=== PATIENT | female | born 2000 ===

== ENCOUNTER 2022-12-02 05:51 | Emergency (ER) | payer BC ==
[2022-12-02 06:34] LABS: Absolute Lymphocytes (CBC) 3.2 K/uL (0.7-4.9); Hematocrit 39.8 % (36.0-45.0); Lymphocytes % 31.9 % (15.3-44.8); MCV 87.5 fL (80-100); MPV 7.7 fL (7.6-11.3); RBC Red Blood Cell Count 4.55 M/uL (3.86-4.86)
[2022-12-02] MEDS ORDERED: KETOROLAC 30 MG/ML INJ ONE (06:40)
[2022-12-02] MEDS ORDERED: MORPHINE 4 MG/ML SYR ONE (06:40)
[2022-12-02] MEDS ORDERED: NA CHLORIDE 0.9% 1,000 ML ONE (06:40)
[2022-12-02] MEDS ORDERED: ONDANSETRON 4 MG/2 ML VIAL ONE (06:40)
[2022-12-02 06:51] LABS: Albumin 3.8 g/dL (3.4-5.0); Bilirubin Total 0.4 mg/dL (0.2-1.0); Potassium 3.1 mEq/L (3.5-5.1); Protein, Total 7.6 g/dL (6.4-8.2)
[2022-12-02 07:03] LABS: Calcium Oxalate Crystals- Ur Few /HPF (None Seen); Specific Gravity 1.028 (1.005-1.030); Transitional Epithelial <5 /HPF (None Seen); Urine Bacteria <20 /HPF (<20); Urine Bilirubin NEGATIVE (Negative); Urine Blood 1+ (Negative); Urine Clarity Extremely Turbid (Clear); Urine Color Yellow (Yellow); Urine Glucose NEGATIVE (Negative); Urine Mucus 4+ /HPF (None Seen); Urine Protein TRACE (Negative); Urine RBC 21-50 /HPF (None Seen); Urine Urobilinogen Normal (Normal)
[2022-12-02 07:05] LABS: Specific Gravity 1.028 (1.005-1.030)
--- NOTE | 2022-12-02 07:38 | RAD REPORT ---
EXAM DESCRIPTION: CTAbdomen Pelvis W Contrast - 12/02/2022 7:28 am CLINICAL HISTORY: Abdominal pain. ABD PAIN COMPARISON: No comparisons TECHNIQUE: Biphasic CT imaging of the abdomen and pelvis was performed with 100 ml non-ionic IV cont rast. All CT scans are performed using dose optimization technique as appropriate and may include automated exposure control or mA/KV adjustment according to patient size. FINDINGS: The lung bases are clear. The liver, spleen, pancreas, adrenal glands and right kidney are within normal limits. 2 mm calculus is suspected in the urinary bladder along the right aspect. There is subtle right-sided hydronephrosi s hydroureter. No bowel obstruction, free air, free fluid or abscess. The appendix is normal. No evidence of signi ficant lymphadenopathy. No suspicious bony findings. IMPRESSION: The findings would favor a recently passed right-sided 2 mm urinary tract stone.
--- NOTE | 2022-12-02 08:09 | EDPHYS ---
Physician Documentation [facility] Name: Gautam Gloria Age: 22 yrs Sex: Female : 2000 Arrival Date: 12/02/2022 Time: 05:51 Bed 15 Private MD: ED Physician Molina Julio HPI: 12/02 05:58 This 22 yrs old Female presents to ER via Unassigned with complaints of sp4 Abdominal Pain. 06:25 22-year-old female with history of insulin resistance on Ozempic, presents with a cute sp4 onset right lower abdominal pain starting at 5 AM associated with vomiting. Pain has gradually increased since 5 AM. . 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 - Social history:: Smoking status: Patient denies any tobacco usage or history of. - Family history:: not pertinent. ROS: 06:25 Constitutional: Negative for fever, chills, and weight loss, Abdomen/GI: Negative for sp4 diarrhea, and constipation, positive for abdominal pain nausea and vomiting 06:25 All other systems are negative. Exam: 06:25 Constitutional: This is a well developed, well nourished patient who is awake, alert, sp4 and in no acute distress. Head/Face: Normocephalic, atraumatic. Eyes: Pupils equal round and reactive to light, extra-ocular motions intact. Lids and lashes normal. Conjunctiva and sclera are not injected. Cornea within normal limits. Periorbital areas with no swelling, redness, or edema. ENT: Nares patent. No nasal discharge, no septal abnormalities noted. Tympanic membranes are normal and external auditory canals are clear. Oropharynx with no redness, swelling, or masses, exudates, or evidence of obstruction, uvula midline. Mucous membranes moist. Neck: Trachea midline, no thyromegaly or masses palpated, and no cervical lymphadenopathy. Supple, full range of motion without nuchal rigidity, or vertebral point tenderness. Chest/axilla: Normal chest wall appearance and motion. Nontender with no deformity. No lesions are appreciated. Cardiovascular: Regular rate and rhythm with a normal S1 and S2. No gallops, murmurs, or rubs. Normal PMI, no JVD. No pulse deficits. Respiratory: Lungs have equal breath sounds bilaterally, clear to auscultation and percussion. No rales, rhonchi or wheezes noted. No increased work of breathing, no retractions or nasal flaring. Abdomen/GI: Soft, right lower quadrant abdominal tenderness with positive rebound, no rigidity, no distention, hypoactive bowel sound, signs of early peritonitis on exam Back: No spinal tenderness. No costovertebral tenderness. Skin: Warm, dry with normal turgor. Normal color with no rashes, no lesions, and no evidence of cellulitis. MS/ Extremity: Pulses equal, no cyanosis. Neurovascular intact. Full, normal range of motion. Neuro: Awake and alert, GCS 15, oriented to person, place, time, and situation. Cranial nerves II-XII grossly intact. Motor strength 5/5 in all extremities. Sensory grossly intact. Psych: Awake, alert, with orientation to person, place and time. Behavior, mood, and affect are within normal limits Vital Signs: 06:05 BP 138 / 97; Pulse 116; Resp 18 S; Temp 98.6(O); Pulse Ox 100% on R/A; Weight 81.65 kg as6 (R); Height 5 ft. 2 in. (R); Pain 7/10; 08:16 BP 122 / 86; Pulse 97; Pulse Ox 100% ; ap3 06:05 Body Mass Index 32.92 (81.65 kg, 157.48 cm) as6 06:05 Pain Scale: Adult as6 MDM: 06:18 Patient medically screened. sp4 06:28 Differential Diagnosis sepsis, Appendicitis, ovarian cyst with torsion, ruptured sp4 ovarian cyst,. Data reviewed: vital signs, nurses notes, lab test result(s), amylase and lipase, CBC, electrolytes, hepatic panel, urinalysis, UPT: negative. 07:17 Transition of care: After a detail discussion of the patient's case, care is sp4 transferred to Molina Julio MD. 08:07 Counseling: I had a detailed discussion with the patient and/or guardian regarding: the rn historical points, exam findings, and any diagnostic results supporting the discharge/admit diagnosis, lab results, radiology results, the need for outpatient follow up, to return to the emergency department if symptoms worsen or persist or if there are any questions or concerns that arise at home. Response to treatment: the patient's symptoms have markedly improved after treatment, and as a result, I will discharge patient. Special discussion: I discussed with the patient/guardian in detail that at this point there is no indication for admission to the hospital. It is understood, however, that if the symptoms persist or worsen the patient needs to return immediately for re-evaluation. ED course: Signed out to me by Dr. Martinez, has recently passed a 2 mm stone, pain controlled, feels much better, no indications for acute surgical procedure. Will dc home with return precautions. TOld patient could potentially be related to ozempic initiation a few months ago, recommend talking to her doctor to change meds. . 12/02 06:18 Order name: Test, Urine; Complete Time: 07:14 sp4 12/02 06:18 Order name: Urinalysis W/Microscopic; Complete Time: 07:14 sp4 12/02 06:23 Order name: CBC with Diff; Complete Time: 07:14 jb4 12/02 06:23 Order name: CMP; Complete Time: 07:14 jb4 12/02 06:23 Order name: Lipase; Complete Time: 07:14 jb4 12/02 06:25 Order name: CT Abd/Pelvis - IV Contrast Only; Complete Time: 07:39 sp4 12/02 06:23 Order name: IV Saline Lock; Complete Time: 06:23 jb4 12/02 06:23 Order name: Labs collected and sent; Complete Time: 06:23 jb4 Administered Medications: 06:43 Drug: NS 0.9% IV 1000 ml Route: IV; Rate: 1 bolus; Site: right antecubital; jb4 08:15 Follow up: IV Status: Completed infusion ap3 06:43 Drug: Ondansetron IVP 8 mg Route: IVP; Site: right antecubital; jb4 08:15 Follow up: Response: No adverse reaction ap3 06:43 Drug: morphine IVP or IV 4 mg Route: IVP; Infused Over: 4 mins; Site: right antecubital;jb4 08:16 Follow up: Response: No adverse reaction; Pain is decreased ap3 06:43 Drug: Ketorolac IVP 30 mg Route: IVP; Site: right antecubital; jb4 08:16 Follow up: Response: No adverse reaction; Pain is decreased ap3 Disposition Summary: 12/02/22 08:08 Discharge Ordered Location: Home rn Problem: new rn Symptoms: have improved rn Condition: Stable rn Diagnosis - Urinary calculus, unspecified rn Followup: rn - With: Private Physician - When: As needed - Reason: Recheck today's complaints, Re-evaluation by your physician Discharge Instructions: - Discharge Summary Sheet rn - Kidney Stones rn - Renal Colic rn Forms: - Medication Reconciliation Form rn - Thank You Letter rn - Antibiotic bag turner - Prescription Opioid Use rn - Patient Portal Instructions rn Signatures: Dispatcher [employer] EDMS Molina Julio MD MD rn Bryson, James RN RN jb4 Luis Fernando Skinner RN RN [id number] Chandler Martinez MD MD sp4 Bijal Villa RN ap3 Corrections: (The following items were deleted from the chart) 06:33 06:25 CBC+H.LAB.BRZ ordered. EDMS EDMS 06:33 06:25 COMPREHENSIVE METABOLIC PANEL+C.LAB.BRZ ordered. EDMS EDMS 06:33 06:25 LIPASE+C.LAB.BRZ ordered. EDMS EDMS
--- NOTE | 2022-12-02 08:09 | ER ---
Nurse's Notes [facility] Name: Gautam Gloria Age: 22 yrs Sex: Female : 2000 Arrival Date: 12/02/2022 Time: 05:51 Bed 15 Private MD: Diagnosis: Urinary calculus, unspecified Presentation: 12/02 06:05 Chief complaint: Patient states: "I am having really bad right lower abdominal pain as6 that goes through to my back". Coronavirus screen: At this time, the client does not indicate any symptoms associated with coronavirus-19. Ebola Screen: No symptoms or risks identified at this time. Initial Sepsis Screen: Does the patient meet any 2 criteria? No. Patient's initial sepsis screen is negative. Does the patient have a suspected source of infection? No. Patient's initial sepsis screen is negative. Risk Assessment: Do you want to hurt yourself or someone else? Patient reports no desire to harm self or others. Onset of symptoms was December 02, 2022 at 05:00. 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 - Social history:: Smoking status: Patient denies any tobacco usage or history of. - Family history:: not pertinent. Screenin:08 [facility] ED Fall Risk Assessment (Adult) History of falling in the last 3 months, ap3 including since admission No falls in past 3 months (0 pts). Abuse screen: Denies threats or abuse. Nutritional screening: No deficits noted. Tuberculosis screening: No symptoms or risk factors identified. Assessment: 07:07 Reassessment: Patient and/or family updated on plan of care and expected duration. Pain ap3 level reassessed. Patient is alert, oriented x 3, equal unlabored respirations, skin warm/dry/pink. Patient states feeling better. Patient states symptoms have improved. 07:19 General: Appears comfortable, Behavior is calm, cooperative, appropriate for age. Pain: ap3 Complains of pain in abdomen. Neuro: Level of Consciousness is awake, alert, obeys commands, Oriented to person, place, time, situation, Appropriate for age. Cardiovascular: Patient's skin is warm and dry. Respiratory: Airway is patent Respiratory effort is even, unlabored, Respiratory pattern is regular, symmetrical. GI: Bowel sounds present X 4 quads. Abd is soft. Vital Signs: 06:05 BP 138 / 97; Pulse 116; Resp 18 S; Temp 98.6(O); Pulse Ox 100% on R/A; Weight 81.65 kg as6 (R); Height 5 ft. 2 in. (R); Pain 7/10; 08:16 BP 122 / 86; Pulse 97; Pulse Ox 100% ; ap3 06:05 Body Mass Index 32.92 (81.65 kg, 157.48 cm) as6 06:05 Pain Scale: Adult as6 ED Course: 05:55 Patient arrived in ED. ag3 05:58 Chandler Martinez MD is Attending Physician. sp4 06:08 Triage completed. as6 06:09 Arm band placed on. as6 06:54 Radiology exam delayed due to test not completed at this time. eh4 07:07 Bijal Villa, KAREEN is Primary Nurse. ap3 07:08 Patient has correct armband on for positive identification. Bed in low position. Call ap3 light in reach. Side rails up X 1. Adult w/ patient. Pulse ox on. NIBP on. Door closed. Noise minimized. Warm blanket given. 07:14 Attending Physician role handed off by Chandler Martinez MD rn 07:14 Molina Julio MD is Attending Physician. rn 07:30 CT Abd/Pelvis - IV Contrast Only In Process Unspecified. EDMS 08:15 Provided Education on: discharge instructions. ap3 08:15 No provider procedures requiring assistance completed. IV discontinued, intact, ap3 bleeding controlled, No redness/swelling at site. Pressure dressing applied. Administered Medications: 06:43 Drug: NS 0.9% IV 1000 ml Route: IV; Rate: 1 bolus; Site: right antecubital; jb4 08:15 Follow up: IV Status: Completed infusion ap3 06:43 Drug: Ondansetron IVP 8 mg Route: IVP; Site: right antecubital; jb4 08:15 Follow up: Response: No adverse reaction ap3 06:43 Drug: morphine IVP or IV 4 mg Route: IVP; Infused Over: 4 mins; Site: right antecubital;jb4 08:16 Follow up: Response: No adverse reaction; Pain is decreased ap3 06:43 Drug: Ketorolac IVP 30 mg Route: IVP; Site: right antecubital; jb4 08:16 Follow up: Response: No adverse reaction; Pain is decreased ap3 Medication: 08:15 VIS not applicable for this client. ap3 Outcome: 08:08 Discharge ordered by . rn 08:15 Discharged to home ambulatory, with family. ap3 08:15 Condition: good 08:15 Discharge instructions given to patient, Instructed on discharge instructions, follow up and referral plans. Demonstrated understanding of instructions, follow-up care. 08:16 Patient left the ED. ap3 Signatures: Dispatcher [employer] EDMS Molina Julio MD MD rn Bryson, James, RN RN jb4 Bijal Villa RN RN ap3 Amaya Ray3 Luis Fernando Skinner RN RN as6 Belkis Brennan 4 Chandler Martinez MD MD sp4
[2022-12-02 08:22] VITALS: TEMP 98.6; O2SAT 100
[2022-12-02 08:23] VITALS: BP 122/86
== END 2022-12-02 08:16 | disposition home or self-care (01) ==
LOC: ER 05:51
DX: N20.9 Urinary calculus, unspecified (principal)
CPT/HCPCS: 96361; 85025; 81001; 36415; 81025; 83690; 80053; 74177; 96375; 96374; 99284; Q9967; J2405; J7030

== ENCOUNTER 2025-02-15 20:37 | Emergency (ER) | payer BC ==
[2025-02-15] MEDS ORDERED: MORPHINE 4 MG/ML SYR ONE (21:14)
[2025-02-15] MEDS ORDERED: KETOROLAC 30 MG/ML INJ ONE (21:21)
[2025-02-15] MEDS ORDERED: ONDANSETRON 4 MG/2 ML VIAL ONE (21:21)
[2025-02-15] MEDS ORDERED: NA CHLORIDE 0.9% 1,000 ML ONE (21:22)
[2025-02-15 21:26] LABS: Absolute Lymphocytes (CBC) 1.0 K/uL (0.7-4.9); Hematocrit 38.5 % (36.0-45.0); Hemoglobin 13.5 g/dL (12.0-15.0); MCH 30.1 pg (27.0-35.0); MCHC 35.0 g/dL (32.0-36.0); MCV 86.0 fL (80-100); MPV 7.8 fL (7.6-11.3); Nucleated RBC Absolute Count 0.0 (0-0); Nucleated Red Blood Cells % 0.0 % (0-0); RBC Red Blood Cell Count 4.48 M/uL (3.86-4.86); White Blood Count 14.60 thou/uL (4.3-10.9)
[2025-02-15 21:48] LABS: ALT/SGPT 27.0 U/L (13-56); AST/SGOT 16.0 U/L (15-37); Albumin 4.1 g/dL (3.4-5.0); Albumin/Globulin Ratio 1.1 (1.1-1.8); Alkaline Phosphatase 67.0 U/L (45-117); Anion Gap 9.3 mEq/L (5.0-15.0); BUN Blood Urea Nitrogen 15.0 mg/dL (7-18); Globulin 3.6 g/dL (2.3-3.5); Glucose Level 116.0 mg/dL (74-106); Lipase 24.0 U/L (13-75); Potassium 3.3 mEq/L (3.5-5.1)
[2025-02-15 22:54] LABS: Sqamous Epithelial <5 /HPF (None Seen); Urine Crystals Unidentified Few /HPF (None Seen); Urine Culture Reflex Order NOT NEEDED; Urine Microscopic Reflex YN ORDER UMIC; Urine Yeast (Budding) Trace /HPF (None Seen)
[2025-02-15 23:16] LABS: Blood Morphology Comment NOT SEEN (NOT SEEN); Differential Total Cells Count 100; Segmented Neutrophils 77 % (40-80)
[2025-02-16] MEDS ORDERED: HYDROMORPHONE HCL 0.5 MG/0.5 ML INJ ONE ×2 (03:03→03:08)
--- NOTE | 2025-02-16 06:34 | RAD REPORT ---
EXAMINATION: CT Abdomen Pelvis W Contrast CLINICAL INDICATION: Female, 24 years old. ABD PAIN TECHNIQUE: CT abdomen and pelvis was performed, after the administration of IV contrast, as per [facility] protocol. Axial, sagittal and coronal reconstructions were obtained. One or more of the following dose reduction techniques were used: Automated exposure control, adjustment of the mA and k V according to patient size, and iterative reconstruction. Unless otherwise specified, incidental findings do not require dedicated imaging follow-up. COMPARISON: 12/02/2022 FINDINGS: LOWER CHEST: The visualized lung bases are clear. LIVER: Normal in size and contour. No focal lesion. BILIARY SYSTEM: No suspicious abnormalities. SPLEEN: Normal size. No focal lesion. PANCREAS: No mass, ductal dilation, or khalida-pancreatic fluid. ADRENALS: Normal; no mass. KIDNEYS: Normal size and contour. Mild right hydronephrosis. Right ureter is not significantly dilate d. 3 to 4 mm calculus at the right vesicoureteral junction could be the cause of obstruction.. URINARY BLADDER: Decompressed limiting evaluation. GASTROINTESTINAL TRACT: No evidence of free air, significant intra-abdominal free fluid, bowel obstru ction or abscess. APPENDIX: Normal appendix. LYMPH NODES: No lymphadenopathy. MUSCULOSKELETAL: No acute or suspicious osseous abnormality. ADDITIONAL FINDINGS: None. IMPRESSION: Mild right hydronephrosis. No significant hydroureter. 3 to 4 mm calculus at the right vesicoureteral junction could be the cause of obstruction.
--- NOTE | 2025-02-16 06:37 | EDPHYS ---
Physician Documentation [facility] Name: Gautam Gloria Age: 24 yrs Sex: Female : 2000 Arrival Date: 02/15/2025 Time: 20:37 Bed 14 Private MD: ED Physician Maxi Ewing HPI: 02/15 22:25 This 24 yrs old Female presents to ER via Ambulatory with complaints of RLQ pain. tt7 22:25 Patient reports that at 1645 she started to have a sharp/stabbing intermittent right tt7 lower quadrant pain that radiates to her right flank, she reports associated urinary frequency, has past history of kidney stones and states that this feels similarly, she denies fever, reports she had 1 episode of nonbloody nonbilious vomiting associated with the pain earlier this evening, no exacerbating or alleviating factors. 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 - Infectious Disease History:: Denies. - Social history:: Smoking status: Patient denies any tobacco usage or history of. ROS: 21:05 Constitutional: negative for fever. Cardiovascular: negative for chest pain. tt7 Respiratory: negative for shortness of breath. MS/Extremity: negative for injury and deformity. Skin: negative for rash. Neuro: negative for focal weakness. Exam: 22:09 Constitutional: vital signs reviewed, well appearing. Head/Face: normocephalic, tt7 atraumatic. Eyes: no conjunctival injection, anicteric sclerae. ENT: mucus membranes moist. Neck: trachea midline, no JVD, no meningismus. Cardiovascular: regular rate and rhythm, no lower extremity edema. Respiratory: normal respiratory effort, no accessory muscle use. Abdomen/GI: soft, nondistended, moderate right lower quadrant tenderness to palpation which radiates to the right flank, no guarding or rebound, negative Eastman's sign. Back: normal ROM. Skin: warm, dry, intact, normal turgor, normal color, no rash. MS/ Extremity: normal ROM of extremities, no gross deformities. Neuro: alert and oriented with appropriate mental status, normal speech, follows commands, no focal neurologic deficits. Psych: appropriate mood and affect. Vital Signs: 20:51 BP 138 / 90; Pulse 82; Resp 16; Temp 98.3; Pulse Ox 100% ; Weight 79.38 kg; Height 5 dd2 ft. 2 in. ; Pain 6/10; 21:44 BP 124 / 80; Pulse 87; Resp 18; Pulse Ox 100% ; Pain 8/10; rg5 22:46 BP 124 / 77; Pulse 86; Resp 18; Pulse Ox 100% on R/A; af3 23:00 BP 129 / 87; Pulse 100; Resp 18; Pulse Ox 100% on R/A; af3 23:32 BP 119 / 79; Pulse 111; Resp 18; Pulse Ox 100% on R/A; af3 23:45 BP 117 / 79; Pulse 101; Resp 18; Pulse Ox 98% on R/A; af3 02/16 00:30 BP 124 / 79; Pulse 88; Resp 18; Pulse Ox 97% on R/A; af3 01:15 BP 109 / 60; Pulse 98; Resp 18; Pulse Ox 98% on R/A; af3 02:08 BP 136 / 80; Pulse 92; Resp 18; Pulse Ox 100% on R/A; af3 03:30 BP 131 / 87; Pulse 103; Resp 18; Pulse Ox 100% ; af3 04:22 BP 125 / 88; Pulse 96; Resp 18; Pulse Ox 96% on R/A; af3 05:23 BP 124 / 82; Pulse 85; Resp 18; Pulse Ox 96% on R/A; af3 06:07 BP 124 / 82; Pulse 93; Resp 18; Pulse Ox 96% on R/A; af3 02/15 20:51 Body Mass Index 32.01 (79.38 kg, 157.48 cm) dd2 02/15 20:51 Pain Scale: Adult dd2 21:44 Pain Scale: Adult rg5 MDM: 02/15 20:53 Medical Screening Exam initiated tt7 22:14 Differential diagnosis: Acute cystitis, pyelonephritis, ureterolithiasis, pancreatitis, tt7 appendicitis, gastritis, diverticulitis. Data reviewed: vital signs, nurses notes, old medical records, lab test result(s), radiologic studies. 22:24 ED course: Patient is overall well-appearing, stable vital signs, workup initiated to tt7 include laboratory studies, urinalysis, and CT imaging of the abdomen/pelvis to assess for most likely right sided ureterolithiasis but appendicitis is also a consideration given the location of the pain. Patient treated with IV morphine and Toradol. 02/16 02:26 ED course: Patient has been pending results of CT imaging for several hours now, tt7 attempts have been made to contact radiology and rectify the issue, significant delay in patient care due to problems with either transmitting the images to radiology partners or receiving the report back from them. 03:43 ED course: Still pending solution to obtaining patient's radiology report or being able tt7 to review the CT images, patient updated on delay of care. 06:46 ED course: CT shows very distal right sided ureteral stone, patient was reassessed and tt7 feels much improved, discussed outpatient [id number] analgesia, provided the patient with urology follow-up, discussed return precautions, after completion of the patient's emergency department evaluation, I do not suspect a life-threatening or disabling process. Patient is medically stable and not in need of emergent medical intervention. I had a detailed discussion with the patient regarding the historical points, exam findings, emergency department evaluation, diagnostic results, and the discharge diagnosis. I instructed the patient on outpatient management of their condition. I discussed the need for outpatient follow-up with a primary care physician. I informed the patient on return precautions, including the need to return to the ED if symptoms do not improve, worsen, or if there are any questions or concerns that arise at home. The patient was discharged in stable condition. 02/15 21:00 Order name: CBC with Diff; Complete Time: 23:28 tt7 02/15 21:00 Order name: CMP; Complete Time: 22:01 tt7 02/15 21:00 Order name: Lipase; Complete Time: 22:01 tt7 02/15 21:00 Order name: UA Rfx Omid Cult if indicated; Complete Time: 23:14 tt7 02/15 21:31 Order name: Manual Differential; Complete Time: 23:28 EDMS 02/15 22:33 Order name: Test Serum, Qualitat; Complete Time: 23:14 EDMS 02/15 21:04 Order name: CT Abd/Pelvis - IV Contrast Only; Complete Time: 06:35 tt7 02/15 21:00 Order name: IV Saline Lock; Complete Time: 21:32 tt7 02/15 21:00 Order name: Labs collected and sent; Complete Time: 21:32 tt7 Administered Medications: 02/15 21:32 Drug: TORadol - Ketorolac IVP 15 mg IVP once Route: IVP; Site: right antecubital; rg5 22:29 Follow up: Response: No adverse reaction; Pain is decreased rg5 21:32 Drug: Ondansetron IVP 4 mg IVP once; over 2 minutes Route: IVP; Site: right antecubital;rg5 22:29 Follow up: Response: No adverse reaction rg5 21:32 Drug: morphine IVP or IV 4 mg IVP once over 4 mins Route: IVP; Infused Over: 4 mins; rg5 Site: right antecubital; 22:29 Follow up: Response: No adverse reaction; Pain is decreased rg5 21:32 Drug: NS 0.9% IV 1000 ml IV at 1 bolus Per protocol; to be given as a bolus over 60 rg5 minutes Route: IV; Rate: 1 bolus; Site: right antecubital; 22:00 Follow up: Response: No adverse reaction; IV Status: Completed infusion; IV Intake: af3 1000ml 02/16 06:09 Follow up: IV Status: Completed infusion; IV Intake: 1000ml af3 06:09 Follow up: Response: No adverse reaction af3 03:11 Drug: HYDROmorphone IVP 0.5 mg IVP once Route: IVP; Site: right antecubital; kd3 04:23 Follow up: Response: No adverse reaction; RASS: Alert and Calm (0) af3 Disposition: 06:47 Co-signature as Attending Physician, Maxi Ewing DO. tt7 Disposition Summary: 02/16/25 06:36 Discharge Ordered Notes: Location: Home tt7 Problem: new tt7 Symptoms: are resolved tt7 Condition: Stable tt7 Diagnosis - Calculus of ureter tt7 Followup: tt7 - With: Emergency Department - When: As needed - Reason: Followup: tt7 - With: Jerrod Lemon MD - When: 1 - 2 days - Reason: Recheck today's complaints Discharge Instructions: - Discharge Summary Sheet tt7 - Kidney Stones, [id number] tt7 Forms: - Medication Reconciliation Form tt7 - Antibiotic Education tt7 - Prescription Opioid Use tt7 - Patient Portal Instructions tt7 - Leadership Thank You Letter tt7 Prescriptions: - Ibuprofen 600 mg Oral tablet - take 1 tablet ORAL route every 8 hours As needed take with food; 30 tablet; tt7 Refills: 0, Product Selection Permitted Signatures: Dispatcher [employer] EDMS Pricilla Kuo RN RN kd3 Will Steen RN RN rg5 RENETTA MAZA RN RN dd2 Maxi Ewing DO DO tt7 Radha Kamara RN af3 Corrections: (The following items were deleted from the chart) 02/15 21:01 21:01 CBC+H.LAB.BRZ ordered. EDMS EDMS 21:01 21:01 COMPREHENSIVE METABOLIC PANEL+C.LAB.BRZ ordered. EDMS EDMS 21:01 21:01 LIPASE+C.LAB.BRZ ordered. EDMS EDMS 21:01 21:01 UA Rfx Omid Cult if indicated+U.LAB.BRZ ordered. EDMS EDMS
--- NOTE | 2025-02-16 06:37 | ER ---
Nurse's Notes [facility] Name: Gautam Gloria Age: 24 yrs Sex: Female : 2000 Arrival Date: 02/15/2025 Time: 20:37 Bed 14 Private MD: Diagnosis: Calculus of ureter Presentation: 02/15 20:51 Chief complaint: Patient states: RT LOWER BACK AND RT LOWER STOMACH PAIN, N/V, dd2 PRESSURE, URGENCY AND DECREASE URINE OUT STARTED AT 4:45 PM. Coronavirus screen: At this time, the client does not indicate any symptoms associated with coronavirus-19. Ebola Screen: No symptoms or risks identified at this time. Initial Sepsis Screen: Does the patient meet any 2 criteria? No. Patient's initial sepsis screen is negative. Does the patient have a suspected source of infection? No. Patient's initial sepsis screen is negative. Risk Assessment: Do you want to hurt yourself or someone else? Patient reports no desire to harm self or others. Onset of symptoms was February 15, 2025 at 16:45. 20:51 Method Of Arrival: Ambulatory dd2 20:51 Acuity: SANTOS 3 dd2 Triage Assessment: 20:53 General: Appears in no apparent distress. uncomfortable, Behavior is calm, cooperative, dd2 appropriate for age. Pain: Complains of pain in right low back and right lower quadrant. GI: Reports lower abdominal pain. : Reports inability to void, pain in right lower quadrant(s) in lower back urgency. 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 - Infectious Disease History:: Denies. - Social history:: Smoking status: Patient denies any tobacco usage or history of. Screenin:44 [facility] ED Fall Risk Assessment (Adult) History of falling in the last 3 months, rg5 including since admission No falls in past 3 months (0 pts) Confusion or Disorientation No (0 pts) Intoxicated or Sedated No (0 pts) Impaired Gait No (0 pts) Mobility Assist Device Used No (0 pt) Altered Elimination No (0 pt) Score/Fall Risk Level 0 - 2 = Low Risk Oriented to surroundings, Maintained a safe environment. Abuse screen: Denies threats or abuse. Nutritional screening: No deficits noted. Tuberculosis screening: No symptoms or risk factors identified. Assessment: 21:44 General: Appears in no apparent distress. uncomfortable, Behavior is calm, cooperative, rg5 appropriate for age. Pain: Complains of pain in abdomen Quality of pain is described as aching. Neuro: Level of Consciousness is awake, alert, obeys commands, Oriented to person, place, time, situation. Cardiovascular: Denies chest pain. Respiratory: Airway is patent Respiratory effort is even, unlabored. GI: Bowel sounds present in left lower quadrant Abd is soft and non tender. : No signs and/or symptoms were reported regarding the genitourinary system. EENT: No signs and/or symptoms were reported regarding the EENT system. Derm: Skin is intact, Skin is dry. Musculoskeletal: Circulation, motion, and sensation intact. Range of motion: intact in all extremities. 22:53 General: Appears in no apparent distress. comfortable, well groomed, well developed, af3 Behavior is calm, cooperative, appropriate for age. Pain: Denies pain. Neuro: Level of Consciousness is awake, alert, obeys commands, Oriented to person, place, time, situation. Cardiovascular: Patient's skin is warm and dry. Respiratory: Airway is patent Respiratory effort is even, unlabored. 22:53 Reassessment: Assumed care of pt from Will MATHUR. af3 23:56 Reassessment: Patient appears in no apparent distress at this time. Patient and/or af3 family updated on plan of care and expected duration. Pain level reassessed. Patient is alert, oriented x 3, equal unlabored respirations, skin warm/dry/pink. Patient states feeling better. Patient states symptoms have improved. 02/16 01:00 Reassessment: Patient appears in no apparent distress at this time. Patient and/or af3 family updated on plan of care and expected duration. Pain level reassessed. Patient is alert, oriented x 3, equal unlabored respirations, skin warm/dry/pink. 02:00 Reassessment: Patient appears in no apparent distress at this time. Patient and/or af3 family updated on plan of care and expected duration. Pain level reassessed. Patient is alert, oriented x 3, equal unlabored respirations, skin warm/dry/pink. 03:30 Reassessment: Patient appears in no apparent distress at this time. Patient and/or af3 family updated on plan of care and expected duration. Pain level reassessed. Patient is alert, oriented x 3, equal unlabored respirations, skin warm/dry/pink. 04:22 Reassessment: Patient appears in no apparent distress at this time. Patient and/or af3 family updated on plan of care and expected duration. Pain level reassessed. Patient is alert, oriented x 3, equal unlabored respirations, skin warm/dry/pink. 05:22 Reassessment: Patient appears in no apparent distress at this time. Patient and/or af3 family updated on plan of care and expected duration. Pain level reassessed. Patient is alert, oriented x 3, equal unlabored respirations, skin warm/dry/pink. 06:07 Reassessment: Patient appears in no apparent distress at this time. af3 Vital Signs: 02/15 20:51 BP 138 / 90; Pulse 82; Resp 16; Temp 98.3; Pulse Ox 100% ; Weight 79.38 kg; Height 5 dd2 ft. 2 in. ; Pain 6/10; 21:44 BP 124 / 80; Pulse 87; Resp 18; Pulse Ox 100% ; Pain 8/10; rg5 22:46 BP 124 / 77; Pulse 86; Resp 18; Pulse Ox 100% on R/A; af3 23:00 BP 129 / 87; Pulse 100; Resp 18; Pulse Ox 100% on R/A; af3 23:32 BP 119 / 79; Pulse 111; Resp 18; Pulse Ox 100% on R/A; af3 23:45 BP 117 / 79; Pulse 101; Resp 18; Pulse Ox 98% on R/A; af3 16 00:30 BP 124 / 79; Pulse 88; Resp 18; Pulse Ox 97% on R/A; af3 01:15 BP 109 / 60; Pulse 98; Resp 18; Pulse Ox 98% on R/A; af3 02:08 BP 136 / 80; Pulse 92; Resp 18; Pulse Ox 100% on R/A; af3 03:30 BP 131 / 87; Pulse 103; Resp 18; Pulse Ox 100% ; af3 04:22 BP 125 / 88; Pulse 96; Resp 18; Pulse Ox 96% on R/A; af3 05:23 BP 124 / 82; Pulse 85; Resp 18; Pulse Ox 96% on R/A; af3 06:07 BP 124 / 82; Pulse 93; Resp 18; Pulse Ox 96% on R/A; af3 02/15 20:51 Body Mass Index 32.01 (79.38 kg, 157.48 cm) dd2 02/15 20:51 Pain Scale: Adult dd2 21:44 Pain Scale: Adult rg5 ED Course: 02/15 20:41 Patient arrived in ED. gm2 20:53 Triage completed. dd2 20:53 Maxi Ewing DO is Attending Physician. tt7 20:53 Arm band placed on right wrist. dd2 21:06 Radiology exam delayed due to lab results not completed at this time. (HCG) jc4 (BUN/Creatinine) test not completed at this time. IV insertion attempt and/or patient not having appropriate IV at this time. 21:08 Will Steen, RN is Primary Nurse. rg5 21:30 Radiology exam delayed due to test not completed at this time. jc4 21:44 Patient has correct armband on for positive identification. Bed in low position. Call rg5 light in reach. Side rails up X 1. Door closed. Noise minimized. 21:44 No provider procedures requiring assistance completed. Inserted saline lock: 20 gauge rg5 in right antecubital area, using aseptic technique. Blood collected. Flushed with 10 mL NS. 22:50 Test Serum, [employer] Sent. af3 22:51 UA Rfx Omid Cult if indicated Sent. af3 23:30 CT Abd/Pelvis - IV Contrast Only In Process Unspecified. EDMS 02/16 06:35 Jerrod Lemon MD is Referral Physician. tt7 06:57 Provided Education on: discharge follow up. af3 06:57 IV discontinued, intact, bleeding controlled, No redness/swelling at site. Pressure af3 dressing applied. Administered Medications: 02/15 21:32 Drug: TORadol - Ketorolac IVP 15 mg IVP once Route: IVP; Site: right antecubital; rg5 22:29 Follow up: Response: No adverse reaction; Pain is decreased rg5 21:32 Drug: Ondansetron IVP 4 mg IVP once; over 2 minutes Route: IVP; Site: right antecubital;rg5 22:29 Follow up: Response: No adverse reaction rg5 21:32 Drug: morphine IVP or IV 4 mg IVP once over 4 mins Route: IVP; Infused Over: 4 mins; rg5 Site: right antecubital; 22:29 Follow up: Response: No adverse reaction; Pain is decreased rg5 21:32 Drug: NS 0.9% IV 1000 ml IV at 1 bolus Per protocol; to be given as a bolus over 60 rg5 minutes Route: IV; Rate: 1 bolus; Site: right antecubital; 22:00 Follow up: Response: No adverse reaction; IV Status: Completed infusion; IV Intake: af3 1000ml 02/16 06:09 Follow up: IV Status: Completed infusion; IV Intake: 1000ml af3 06:09 Follow up: Response: No adverse reaction af3 03:11 Drug: HYDROmorphone IVP 0.5 mg IVP once Route: IVP; Site: right antecubital; kd3 04:23 Follow up: Response: No adverse reaction; RASS: Alert and Calm (0) af3 Medication: 02/15 21:44 VIS not applicable for this client. rg5 Intake: 22:00 IV: 1000ml; Total: 1000ml. af3 02/16 06:09 IV: 1000ml; Total: 2000ml. af3 Outcome: 06:36 Discharge ordered by . tt7 06:57 Discharged to home ambulatory, af3 06:57 Condition: good 06:57 Discharge instructions given to patient, Instructed on discharge instructions, follow up and referral plans. medication usage, Demonstrated understanding of instructions, follow-up care, medications, Prescriptions given X 1, 06:58 Patient left the ED. af3 Signatures: Dispatcher [employer] EDMS Pricilla Kuo RN RN kd3 Dominique Mane gm2 Will Steen RN RN rg5 Paco Alva jc4 Radha Kamara RN RN af3 RENETTA AMZA RN RN dd2 Maxi Ewing, DO tt7 Corrections: (The following items were deleted from the chart) 00:39 02/15 22:53 Respiratory: Airway is patent Respiratory effort is even, unlabored, af3 af3
[2025-02-16 07:54] VITALS: TEMP 98.3
[2025-02-16 08:06] VITALS: O2SAT 96
[2025-02-16 08:08] VITALS: BP 124/82
== END 2025-02-16 06:58 | disposition home or self-care (01) ==
LOC: ER 20:37
DX: N20.1 Calculus of ureter (principal); Z87.442 Personal history of urinary calculi
CPT/HCPCS: 85025; 81001; 36415; 84703; 83690; 80053; 74177; 96375; 96374; 99284; Q9967; J1885; J1171; J2405; J7030